=== PATIENT | female | born 1965 | race African-American/Black ===

== ENCOUNTER 2016-12-16 15:20 | Inpatient (IN) | payer OTHER ==
[2016-12-16 17:39] VITALS: BMI 23.0
--- NOTE | 2016-12-16 21:45 | HP ---
Admission ROS [facility] - [facility] Chief Complaint: COMPLETED DETOX FOR OPIATE DEPENDENCE NOW SEEKING REHAB FOR CONTINUATION OF RECOVERY Allergies/Adverse Reactions: Allergies Allergy/AdvReac Type Severity Reaction Status Date / Time No Known Allergies Allergy Verified 12/16/16 19:38 History of Present Illness: 50 Y.O FEMALE WITH LONG HISTORY OF POLYSUBSTANCE DEPENDENCE ADMITTED TO REHAB . CLIENT COMPLETED DETOX AT [facility] AND WAS DC TODAY. TRANSFERRED HERE FROM [facility]. REPORTS LONGEST CLEAN TIME 15 YEARS RELAPSING 2 YEARS AGO. DETOX: 2X REHAB: 2X Exam Limitations: Physical Impairment (R EYE BLINDNESS) - Ebola screening Have you traveled outside of the country in the last 21 days: No Have you had contact with anyone from an Ebola affected area: No Have you been sick,other than usual withdrawal symptoms: No - Review of Systems Constitutional: No Symptoms Reported EENT: reports: Other (R EYE BLINDNESS) Respiratory: reports: Shortness of Breath, Other (RECENTLY DC FROM [facility] 2 WEEKS AGO AFTER BEING TX'ED FOR PNA) Cardiac: reports: No Symptoms Reported GI: reports: No Symptoms Reported : reports: No Symptoms Reported Musculoskeletal: reports: No Symptoms Reported Integumentary: reports: No Symptoms Reported Neuro: reports: No Symptoms reported Endocrine: reports: No Symptoms Reported Hematology: reports: No Symptoms Reported Psychiatric: reports: Anxious Other Systems: Reviewed and Negative Patient History - Patient Medical History Hx Anemia: No Hx Asthma: No Hx Chronic Obstructive Pulmonary Disease (COPD): No Hx Cancer: No Hx Cardiac Disorders: No Hx Congestive Heart Failure: No Hx Hypertension: Yes (LISINOPRIL) Hx Hypercholesterolemia: No Hx Pacemaker: No HX Cerebrovascular Accident: No Hx Seizures: No Hx Dementia: No Hx Diabetes: No Hx Gastrointestinal Disorders: No Hx Liver Disease: No Hx Genitourinary Disorders: No Hx Sexually Transmitted Disorders: No Hx Renal Disease (ESRD): No Hx Thyroid Disease: No Hx Human Immunodeficiency Virus (HIV): Yes Hx Hepatitis C: No Hx Depression: No Hx Suicide Attempt: No Hx Bipolar Disorder: No Hx Schizophrenia: No Other Medical History: R EYE BLINDNESS - Patient Surgical History Past Surgical History: Yes Other Surgical History: R EYE CORNEAL TRANSPLANT Anesthesia Reaction: No - PPD History Previous Implant?: Yes Documented Results: Negative w/o proof Implanted On Prior [facility] Admission?: No PPD to be Administered?: Yes - Reproductive History Patient is a Female of Child Bearing Age (11 -55 yrs old): Yes LMP comment: IRREG/ LAST MENSES 3 YEARS AGO [place] : [place] [facility] [place] - Smoking Cessation Smoking history: Current every day smoker Have you smoked in the past 12 months: Yes Aproximately how many cigarettes per day: 4 Cigars Per Day: 0 Hx Chewing Tobacco Use: No Initiated information on smoking cessation: Yes 'Breaking Loose' booklet given: 12/16/16 - Substance & Tx. History Hx Alcohol Use: No Hx Substance Use: Yes Substance Use Type: Cocaine, Heroin, Opiates (PERCOCETS) Hx Substance Use Treatment: Yes ([facility]) - Substances Abused HEROIN Route: Inhalation Frequency: Daily Amount used: 7 BAGS Age of first use: 17 Date of Last Use: 12/09/16 COCAINE Route: Inhalation Frequency: 1-2 times per week Amount used: $60 Age of first use: 17 Date of Last Use: 12/07/16 Family Disease History - Family Disease History Family History: Denies Admission Physical Exam [facility] - Vital Signs Vital Signs: Vital Signs - 24 hr 12/16/16 17:36 Temperature 97.7 F Pulse Rate 90 Respiratory 18 Rate Blood Pressure 145/101 - Physical General Appearance: Yes: No Apparent Distress, Appropriately Dressed HEENTM: Yes: Normocephalic, Normal Voice, Pharynx Normal, Other (R EYE PUPIL NOT VISUALIZED DUE TO FAILED CORNEA TRANSPLANT) Respiratory: Yes: Chest Non-Tender, Lungs Clear, Normal Breath Sounds, No Respiratory Distress, No Accessory Muscle Use Neck: Yes: No masses,lesions,Nodules, Supple, Trachea in good position Breast: Yes: Breast Exam Deferred Cardiology: Yes: Regular Rhythm, Regular Rate, S1, S2 Abdominal: Yes: Normal Bowel Sounds, Non Tender, Soft Genitourinary: Yes: Within Normal Limits Back: Yes: Normal Inspection Musculoskeletal: Yes: full range of Motion, Gait Steady Extremities: Yes: Normal Capillary Refill, Normal Range of Motion, Non-Tender Neurological: Yes: flying instructor II-XII NML intact, Fully Oriented, Alert, Motor Strength 5/5, Normal Mood/Affect Integumentary: Yes: Normal Color, Dry, Warm Lymphatic: Yes: Within Normal Limits - Diagnostic (1) Uncomplicated opioid dependence Current Visit: Yes Status: Chronic (2) Cocaine dependence, uncomplicated Current Visit: Yes Status: Chronic (3) Nicotine dependence Current Visit: Yes Status: Chronic Qualifiers: Nicotine product type: cigarettes Substance use status: uncomplicated Qualified Code(s): F17.210 - Nicotine dependence, cigarettes, uncomplicated; F17.210 - Nicotine dependence, cigarettes, uncomplicated (4) HIV (human immunodeficiency virus infection) Current Visit: Yes Status: Chronic (5) HTN (hypertension) Current Visit: Yes Status: Chronic Qualifiers: Hypertension type: essential hypertension Qualified Code(s): I10 - Essential (primary) hypertension; I10 - Essential (primary) hypertension; I10 - Essential (primary) hypertension (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 Cleared for Admission [facility] - Detox or Rehab Detox Regimen/Protocol: Not Applicable Claeared for Rehab Admission: Yes [facility] Breath Alcohol Content Breath Alcohol Content: 0 Urine Pregancy Test - Result Urine Test Results: Negative- NO Line Present Urine Drug Screen - Results Drug Screen Negative: No Urine Drug Screen Results: MTD-Methadone Inpatient Rehab Admission - Initial Determination Are CD services needed?: Yes Free of communicable disease: Yes Not in need of hospitalization: Yes - Rehab Admission Criteria Previous failed treatment: Yes Poor recovery environment: Yes Comorbidities: Yes Lacks judgement: Yes Patient is meeting Inpatient Rehab admission criteria:: Yes
[2016-12-16] MEDS ORDERED: MAGNESIUM CITRATE 300 ML BOTTLE PO PRN (21:53)
[2016-12-16] MEDS ORDERED: MAG HYDROX/AL HYDROX/SIMETH 30 ML UNIT-DOSE CUP PO PRN (21:53)
[2016-12-16] MEDS ORDERED: hydrOXYzine PAMOATE 50 MG CAPSULE (FP) PO PRN (21:53)
[2016-12-16] MEDS ORDERED: MAGNESIUM HYDROX 2400MG/30ML ORAL SUSPENSION 30 ML CUP PO PRN (21:53)
[2016-12-16] MEDS ORDERED: LOPERAMIDE HCL 2 MG CAPSULE PO PRN (21:53)
[2016-12-16] MEDS ORDERED: ACETAMINOPHEN 325 MG TABLET (FP) PO PRN (21:53)
[2016-12-16] MEDS ORDERED: P-EPHED 60MG/TRIPROLIDI 2.5MG TABLET PO PRN (21:53)
[2016-12-16] MEDS ORDERED: NICOTINE POLACRILEX 2 MG GUM BC PRN (21:53)
[2016-12-16] MEDS ORDERED: guaiFENesin/D-METHORPHAN HB 10 ML UNIT-DOSE CUPS PO PRN (21:53)
[2016-12-16] MEDS ORDERED: MENTHOL/PHENOL 1 EACH UD MM PRN (21:53)
[2016-12-16] MEDS ORDERED: IBUPROFEN 400 MG TABLET (FP) PO PRN (21:53)
[2016-12-16] MEDS ORDERED: ZOLPIDEM TARTRATE 5 MG TABLET PO ONE (21:56)
[2016-12-17] MEDS: THIAMINE HCL 100 MG TABLET (FP) PO SCH ×2 (00:29→21:07)
[2016-12-17] MEDS: NICOTINE 14 MG/24 HOURS TOPICAL PATCH TD SCH ×2 (00:29→10:00)
[2016-12-17] MEDS ORDERED: ZOLPIDEM TARTRATE 5 MG TABLET PO ONE (00:45)
[2016-12-17] MEDS ORDERED: TUBERCULIN PPD 5 TU/0.1ML VIAL ID ONE (01:04)
[2016-12-17 01:12] LABS: URINE APPEARANCE SLCLOUDY; URINE BILIRUBIN NEGATIVE (NEGATIVE); URINE BLOOD NEGATIVE (NEGATIVE); URINE COLOR LTYELLOW; URINE GLUCOSE (UA) NEGATIVE (NEGATIVE); URINE KETONE NEGATIVE (NEGATIVE); URINE LEUK ESTERASE NEGATIVE (NEGATIVE); URINE NITRITE NEGATIVE (NEGATIVE); URINE PROTEIN NEGATIVE (NEGATIVE); URINE UROBILINOGEN NEGATIVE mg/dL (0.2-1.0)
[2016-12-17] MEDS: ATAZANAVIR SO4 300 MG CAPSULE PO SCH (10:42)
[2016-12-17] MEDS: RITONAVIR 100 MG TABLET PO SCH (10:42)
[2016-12-17] MEDS: EMTRICITABINE 200MG/TENOFOVIR 300MG PO SCH (10:43)
[2016-12-17] MEDS: PRENATAL VITAMINS W/ FOLIC ACID TABLET (FP) PO SCH (10:43)
[2016-12-17 15:43] LABS: MCH 23.1 pg (25.7-33.7); MCHC 31.8 g/dl (32.0-36.0); MEAN CELL VOLUME 72.7 fl (80-96); PLATELET COUNT 215 K/MM3 (134-434); RDW 15.3 % (11.6-15.6); WHITE BLOOD COUNT 5.3 K/mm3 (4.0-10.0)
[2016-12-17 16:07] LABS: ALBUMIN 2.7 g/dl (3.4-5.0); ALK PHOS 91 U/L (45-117); ANION GAP 5 (8-16); BILIRUBIN,TOTAL 0.8 mg/dL (0.2-1.0); CALCIUM 8.3 mg/dL (8.5-10.1); CO2 26 mmol/L (21-32); CREATININE 1.4 mg/dL (0.55-1.02); GLUCOSE,RANDOM 63 mg/dL (74-106); SGOT/AST 50 U/L (15-37); SGPT/ALT 40 U/L (12-78); TOT PROT 7.9 g/dl (6.4-8.2)
--- NOTE | 2016-12-17 20:35 | EKG ---
Test Reason : Blood Pressure : / mmHG Vent. Rate : 087 BPM Atrial Rate : 087 BPM P-R Int : 156 ms QRS Dur : 086 ms QT Int : 396 ms P-R-T Axes : 071 044 053 degrees QTc Int : 476 ms NORMAL SINUS RHYTHM POSSIBLE LEFT ATRIAL ENLARGEMENT EARLY REPOLARIZATION BORDERLINE ECG NO PREVIOUS ECGS AVAILABLE REPEAT EKG IF CLINICALLY INDICATED Confirmed by BINH ARCE MD ([id number]) on 12/17/2016 8:35:04 PM Referred By: Frida Morgan Confirmed By:BINH ARCE MD
[2016-12-17] MEDS: diphenhydrAMINE HCL 50 MG CAPSULE PO PRN (21:07)
[2016-12-18] MEDS ORDERED: PT OWN MED DRAWER 7, Y5N ONE (08:41)
[2016-12-18] MEDS: ATAZANAVIR SO4 300 MG CAPSULE PO SCH (10:11)
[2016-12-18] MEDS: PRENATAL VITAMINS W/ FOLIC ACID TABLET (FP) PO SCH (10:11)
[2016-12-18] MEDS: EMTRICITABINE 200MG/TENOFOVIR 300MG PO SCH (10:11)
[2016-12-18] MEDS: RITONAVIR 100 MG TABLET PO SCH (10:11)
[2016-12-18] MEDS: NICOTINE 14 MG/24 HOURS TOPICAL PATCH TD SCH (10:12)
--- NOTE | 2016-12-18 12:51 | HP ---
Psychiatrist Admission - Data Date of interview: 12/18/16 Admission source: [facility] Identifying data: This is the first admission to [facility] inpatient rehabilitation for this 50 years old single AA female resides with boyfriend supported by [place]. Medical History: HIV + dx in 1994,R eye blindness. Psychiatric History: denies Physical/Sexual Abuse/Trauma History: denies Vital Signs: Vital Signs - 24 hr 12/18/16 12/18/16 12/18/16 00:30 03:30 07:10 Temperature 98.1 F Pulse Rate 74 Respiratory 16 16 18 Rate Blood Pressure 120/78 12/18/16 09:39 Temperature Pulse Rate 90 Respiratory Rate Blood Pressure 126/86 Allergies/Adverse Reactions: Allergies Allergy/AdvReac Type Severity Reaction Status Date / Time No Known Allergies Allergy Verified 12/16/16 19:38 Date of last physical exam: 12/16/16 Concur with the findings of this exam: Yes - Substance Abuse/Tx History Hx Alcohol Use: No Hx Substance Use: Yes (cocaine since 17 yo,heroin since her teens,stopped for 13 years,then relaps) Substance Use Type: Cocaine, Heroin Hx Substance Use Treatment: Yes (this her first inpatient rehabilitation treatment) Mental Status Exam - Mental Status Exam Alert and Oriented to: Time, Place, Person Cognitive Function: Grossly Intact Patient Appearance: Well Groomed Mood: Euthymic Affect: Mood Congruent Patient Behavior: Cooperative Speech Pattern: Clear Voice Loudness: Normal Thought Process: Goal Oriented Thought Disorder: Not Present Hallucinations: Denies Suicidal Ideation: Denies Homicidal Ideation: Denies Insight/Judgement: Fair Sleep: Fair Appetite: Good Muscle strength/Tone: Normal Gait/Station: Normal Psychiatric Findings - Problem List ([place] 1, 2,3) (1) Blind right eye Current Visit: Yes Status: Chronic (2) Cocaine dependence, uncomplicated Current Visit: Yes Status: Chronic (3) HIV (human immunodeficiency virus infection) Current Visit: Yes Status: Chronic (4) HTN (hypertension) Current Visit: Yes Status: Chronic Qualifiers: Hypertension type: essential hypertension Qualified Code(s): I10 - Essential (primary) hypertension; I10 - Essential (primary) hypertension; I10 - Essential (primary) hypertension (5) Nicotine dependence Current Visit: Yes Status: Chronic Qualifiers: Nicotine product type: cigarettes Substance use status: uncomplicated Qualified Code(s): F17.210 - Nicotine dependence, cigarettes, uncomplicated; F17.210 - Nicotine dependence, cigarettes, uncomplicated (6) Opioid dependence Current Visit: Yes Status: Chronic - Initial Treatment Plan Initial Treatment Plan: Will monitor progress.
[2016-12-18] MEDS: THIAMINE HCL 100 MG TABLET (FP) PO SCH (21:07)
[2016-12-18] MEDS: diphenhydrAMINE HCL 50 MG CAPSULE PO PRN (21:07)
[2016-12-19 07:09] VITALS: BP 134/91; PULSE 80; TEMP 97.6
[2016-12-19] MEDS ORDERED: PT OWN MED DRAWER 7, Y5N ONE (08:05)
--- NOTE | 2016-12-19 09:46 | PN ---
S Progress Note Note: Patient decided to sign out AMA despite strong recommendations to continue treatment.See staff notes for details.
== END 2016-12-19 09:31 | disposition left against medical advice (07) | DRG 770 ==
LOC: YASAS 15:20 → Y3N 22:32 → UNDOADMIN 22:32 → Y3E 22:54
PROVIDERS: ADMIT Psychiatry & Neurology Psychiatry; ATTEND Internal Medicine
PROC: HZ43ZZZ Group Counseling for Substance Abuse Treatment, 12-Step (ICD-10-PCS; principal; 2016-12-16)
DX: F11.20 Opioid dependence, uncomplicated (principal); F14.20 Cocaine dependence, uncomplicated; F17.210 Nicotine dependence, cigarettes, uncomplicated; H54.40 Blindness, one eye, unspecified eye; Z21 Asymptomatic human immunodeficiency virus [HIV] infection status; I10 Essential (primary) hypertension
CPT/HCPCS: 36415; 80053; 81003; 85027; 86593; 86803; 93005; 93010

== ENCOUNTER 2020-07-25 00:27 | Inpatient (IN) | payer OTHER ==
[2020-07-25 00:39] VITALS: BMI 20.6
[2020-07-25] MEDS ORDERED: clonazePAM 0.5 MG TABLET PO ONE (00:51)
[2020-07-25] MEDS ORDERED: clonazePAM 0.5 MG TABLET ONE (00:59)
[2020-07-25] MEDS ORDERED: MELATONIN 5 MG TABLETS PO ONE (01:04)
[2020-07-25 01:05] LABS: BASO % 1.5 % (0-2.0); EOS % 5.8 % (0-4.5); HEMATOCRIT 35.8 % (32.4-45.2); HEMOGLOBIN 11.1 GM/dL (10.7-15.3); LYMPH % 21.5 % (8-40); MCH 25.9 pg (25.7-33.7); MCHC 31.1 g/dl (32.0-36.0); MEAN CELL VOLUME 83.3 fl (80-96); MEAN PLT VOLUME 7.1 fl (7.5-11.1); NEUT % 55.2 % (42.8-82.8); PLATELET COUNT 160 K/MM3 (134-434); RDW 17.7 % (11.6-15.6); WHITE BLOOD COUNT 4.8 K/mm3 (4.0-10.0)
[2020-07-25 01:17] LABS: CHLORIDE 105 mmol/L (98-107); SODIUM 143 mmol/L (136-145)
[2020-07-25 01:20] LABS: ALBUMIN 2.5 g/dl (3.4-5.0); ANION GAP 12 MMOL/L (8-16); BLOOD UREA NITROGEN 36.6 mg/dL (7-18); CO2 26 mmol/L (21-32); GLUCOSE,RANDOM 106 mg/dL (74-106)
[2020-07-25 01:23] LABS: SGOT/AST 25 U/L (15-37); SGPT/ALT 17 U/L (13-61)
[2020-07-25 01:25] LABS: BILIRUBIN,TOTAL 0.6 mg/dL (0.2-1); TOT PROT 7.9 g/dl (6.4-8.2)
[2020-07-25 01:26] LABS: ALK PHOS 122 U/L (45-117)
[2020-07-25 02:01] LABS: CALCIUM 6.7 mg/dL (8.5-10.1); CREATININE 10.2 mg/dL (0.55-1.3)
[2020-07-25] MEDS ORDERED: MELATONIN 5 MG TABLETS ONE (02:01)
[2020-07-25] MEDS ORDERED: METHADONE HCL 10 MG TABLET (FOR DETOX USE ONLY) PO ONE (06:04)
[2020-07-25] MEDS ORDERED: METHADONE HCL 10 MG TABLET ONE (06:37)
[2020-07-25] MEDS ORDERED: HEPARIN NA (PORCINE) 5,000 UNITS/ML 1ML VIAL ONE (06:39)
[2020-07-25] MEDS: HEPARIN NA (PORCINE) 5,000 UNITS/ML 1ML VIAL SQ SCH ×3 (06:52→21:53)
[2020-07-25] MEDS ORDERED: SODIUM CHLORIDE 250 ML IV PRN (07:26)
[2020-07-25 08:10] LABS: HEMATOCRIT 39.2 % (32.4-45.2); HEMOGLOBIN 12.2 GM/dL (10.7-15.3); MEAN CELL VOLUME 83.9 fl (80-96); MEAN PLT VOLUME 7.3 fl (7.5-11.1); PLATELET COUNT 154 K/MM3 (134-434); RBC 4.67 M/mm3 (3.60-5.2); RDW 17.6 % (11.6-15.6)
[2020-07-25 08:33] LABS: CHLORIDE 104 mmol/L (98-107); SODIUM 143 mmol/L (136-145)
[2020-07-25 08:35] LABS: ALBUMIN 2.5 g/dl (3.4-5.0); ANION GAP 11 MMOL/L (8-16); BLOOD UREA NITROGEN 38.6 mg/dL (7-18); CO2 27 mmol/L (21-32); GLUCOSE,RANDOM 65 mg/dL (74-106); MAGNESIUM 2.6 mg/dL (1.8-2.4)
[2020-07-25 08:38] LABS: SGOT/AST 23 U/L (15-37); SGPT/ALT 15 U/L (13-61)
[2020-07-25 08:40] LABS: BILIRUBIN,TOTAL 0.6 mg/dL (0.2-1); TOT PROT 7.8 g/dl (6.4-8.2)
[2020-07-25 08:41] LABS: ALK PHOS 116 U/L (45-117)
[2020-07-25 08:49] LABS: CALCIUM 6.9 mg/dL (8.5-10.1); CREATININE 10.3 mg/dL (0.55-1.3); PHOSPHOROUS 8.5 mg/dL (2.5-4.9)
[2020-07-25 09:03] LABS: INR 1.15 (0.83-1.09); PROTHROMBIN TIME (PATIENT) 13.9 SEC (9.7-13.0)
[2020-07-25 09:05] LABS: ACTIVATED PTT 34.5 SECONDS (25.2-36.5)
[2020-07-25] MEDS ORDERED: metoPROLOL SUCCINATE 25 MG TAB.SR.24H (FP) PO SCH (10:00)
[2020-07-25] MEDS ORDERED: metoPROLOL SUCCINATE 25 MG TAB.SR.24H (FP) ONE (10:58)
[2020-07-25] MEDS ORDERED: hydrALAZINE HCL 25 MG TABLET (FP) ONE (15:07)
[2020-07-25] MEDS: hydrALAZINE HCL 25 MG TABLET (FP) PO SCH ×2 (15:10→21:53)
[2020-07-25] MEDS: SEVELAMER CARBONATE 800 MG TAB (FP) PO SCH (17:46)
[2020-07-25] MEDS: cloNIDine HCL 0.1 MG TABLET PO PRN (20:02)
[2020-07-25] MEDS: CARVEDILOL 6.25 MG TABLET (FP) PO SCH (21:53)
[2020-07-26] MEDS: cloNIDine HCL 0.1 MG TABLET PO PRN ×2 (01:35→05:36)
[2020-07-26] MEDS ORDERED: LORazepam 0.5 MG TABLET PO ONE (02:31)
[2020-07-26] MEDS: MELATONIN 5 MG TABLETS PO ONE ×2 (04:35→05:16)
[2020-07-26] MEDS: hydrALAZINE HCL 25 MG TABLET (FP) PO SCH ×3 (05:35→21:54)
[2020-07-26] MEDS: HEPARIN NA (PORCINE) 5,000 UNITS/ML 1ML VIAL SQ SCH ×3 (05:36→21:55)
[2020-07-26] MEDS ORDERED: METHADONE HCL 10 MG TABLET ONE (08:25)
[2020-07-26] MEDS ORDERED: METHADONE HCL 5 MG TABLET ONE (08:25)
[2020-07-26] MEDS: SEVELAMER CARBONATE 800 MG TAB (FP) PO SCH ×3 (08:40→18:18)
[2020-07-26] MEDS: ISOSORBIDE DINITRATE 20 MG TABLET PO SCH ×2 (08:40→13:02)
[2020-07-26 08:58] LABS: BASO % 1.3 % (0-2.0); EOS % 7.6 % (0-4.5); HEMATOCRIT 37.3 % (32.4-45.2); LYMPH % 24.4 % (8-40); MCH 26.5 pg (25.7-33.7); MCHC 32.2 g/dl (32.0-36.0); MEAN CELL VOLUME 82.2 fl (80-96); MEAN PLT VOLUME 7.1 fl (7.5-11.1); MONO % 14.5 % (3.8-10.2); NEUT % 52.2 % (42.8-82.8); PLATELET COUNT 155 K/MM3 (134-434); RBC 4.53 M/mm3 (3.60-5.2); WHITE BLOOD COUNT 5.4 K/mm3 (4.0-10.0)
[2020-07-26 09:55] LABS: CREATININE 6.3 mg/dL (0.55-1.3)
[2020-07-26 09:57] LABS: BILIRUBIN,TOTAL 0.6 mg/dL (0.2-1)
[2020-07-26] MEDS ORDERED: NICOTINE 7 MG/24 HOURS TOPICAL PATCH TD SCH (10:00)
[2020-07-26] MEDS ORDERED: METHADONE 20 MG, METHADONE 5 MG PO ONE (10:00)
[2020-07-26 10:07] LABS: BLOOD UREA NITROGEN 21.3 mg/dL (7-18)
[2020-07-26 10:12] LABS: ALBUMIN 2.5 g/dl (3.4-5.0)
[2020-07-26 10:13] LABS: MAGNESIUM 2.3 mg/dL (1.8-2.4)
[2020-07-26] MEDS ORDERED: PT OWN MED DRAWER 7, Y5N ONE ×2 (11:38→12:27)
[2020-07-26] MEDS: CARVEDILOL 6.25 MG TABLET (FP) PO SCH ×2 (11:39→21:54)
[2020-07-26] MEDS ORDERED: LORazepam 0.5 MG TABLET PO PRN (12:25)
[2020-07-26] MEDS ORDERED: LIDOCAINE 5% TOPICAL PATCH TP ONE (19:54)
[2020-07-26] MEDS: MELATONIN 5 MG TABLETS PO SCH (21:54)
[2020-07-27] MEDS: hydrALAZINE HCL 25 MG TABLET (FP) PO SCH ×2 (05:08→14:13)
[2020-07-27] MEDS: HEPARIN NA (PORCINE) 5,000 UNITS/ML 1ML VIAL SQ SCH ×3 (05:09→21:32)
[2020-07-27] MEDS ORDERED: METHADONE HCL 10 MG TABLET PO ONE (06:00)
[2020-07-27] MEDS ORDERED: SODIUM CHLORIDE 250 ML IV PRN ×2 (07:17→07:57)
[2020-07-27] MEDS ORDERED: cloNIDine HCL 0.1 MG TABLET PO PRN (07:57)
[2020-07-27] MEDS ORDERED: LIDOCAINE PATCH REMOVAL MC SCH (08:00)
[2020-07-27] MEDS: SEVELAMER CARBONATE 800 MG TAB (FP) PO SCH ×3 (08:20→17:12)
[2020-07-27] MEDS ORDERED: PT OWN MED DRAWER 7, Y5N ONE (09:01)
[2020-07-27] MEDS: NICOTINE 7 MG/24 HOURS TOPICAL PATCH TD SCH (09:34)
[2020-07-27] MEDS ORDERED: ACETAMINOPHEN 325 MG TABLET (FP) PO PRN (09:49)
[2020-07-27 09:56] LABS: CHLORIDE 103 mmol/L (98-107); SODIUM 137 mmol/L (136-145)
[2020-07-27 10:06] LABS: ALBUMIN 2.6 g/dl (3.4-5.0); ANION GAP 11 MMOL/L (8-16); BLOOD UREA NITROGEN 31.4 mg/dL (7-18); CALCIUM 6.8 mg/dL (8.5-10.1); CO2 23 mmol/L (21-32); GLUCOSE,RANDOM 107 mg/dL (74-106); MAGNESIUM 2.5 mg/dL (1.8-2.4)
[2020-07-27 10:08] LABS: CREATININE 7.6 mg/dL (0.55-1.3); SGOT/AST 23 U/L (15-37); SGPT/ALT 16 U/L (13-61)
[2020-07-27 10:09] LABS: PHOSPHOROUS 4.7 mg/dL (2.5-4.9)
[2020-07-27 10:10] LABS: BILIRUBIN,TOTAL 0.6 mg/dL (0.2-1)
[2020-07-27 10:12] LABS: ALK PHOS 113 U/L (45-117)
[2020-07-27 11:15] LABS: BASO % 1.2 % (0-2.0); HEMATOCRIT 37.1 % (32.4-45.2); HEMOGLOBIN 11.6 GM/dL (10.7-15.3); LYMPH % 32.8 % (8-40); MCH 25.8 pg (25.7-33.7); MCHC 31.2 g/dl (32.0-36.0); MEAN CELL VOLUME 82.8 fl (80-96); MEAN PLT VOLUME 7.8 fl (7.5-11.1); MONO % 12.8 % (3.8-10.2); NEUT % 46.2 % (42.8-82.8); PLATELET COUNT 183 K/MM3 (134-434); RBC 4.47 M/mm3 (3.60-5.2); RDW 17.8 % (11.6-15.6); WHITE BLOOD COUNT 5.1 K/mm3 (4.0-10.0)
[2020-07-27] MEDS: CARVEDILOL 6.25 MG TABLET (FP) PO SCH ×2 (11:29→21:33)
[2020-07-27] MEDS: ISOSORBIDE DINITRATE 20 MG TABLET PO SCH ×2 (11:30→14:15)
[2020-07-27 12:51] LABS: ANISOCYTOSIS 1+; MACROCYTOSIS 0; PLATELET ESTIMATE NORMAL
[2020-07-27 16:13] LABS: HEP B CORE AB, TOT Positive (Negative)
[2020-07-27] MEDS ORDERED: LIDOCAINE 5% TOPICAL PATCH TP ONE (21:08)
[2020-07-27] MEDS: MELATONIN 5 MG TABLETS PO SCH (21:31)
[2020-07-27 23:40] VITALS: PULSE 89; TEMP 98.2
[2020-07-28] MEDS ORDERED: METHADONE HCL 5 MG TABLET ONE (05:55)
[2020-07-28] MEDS ORDERED: METHADONE HCL 10 MG TABLET ONE (05:56)
[2020-07-28] MEDS ORDERED: METHADONE 10 MG, METHADONE 5 MG PO ONE ×2 (06:00)
[2020-07-28] MEDS: HEPARIN NA (PORCINE) 5,000 UNITS/ML 1ML VIAL SQ SCH (06:16)
[2020-07-28] MEDS: hydrALAZINE HCL 25 MG TABLET (FP) PO SCH (06:22)
[2020-07-28 06:24] VITALS: BP 112/64
[2020-07-28] MEDS ORDERED: PT OWN MED DRAWER 7, Y5N ONE (08:55)
[2020-07-28] MEDS ORDERED: LIDOCAINE PATCH REMOVAL MC SCH (09:00)
[2020-07-28] MEDS: CARVEDILOL 6.25 MG TABLET (FP) PO SCH (09:33)
[2020-07-28] MEDS: SEVELAMER CARBONATE 800 MG TAB (FP) PO SCH (09:33)
[2020-07-28] MEDS: NICOTINE 7 MG/24 HOURS TOPICAL PATCH TD SCH (09:33)
[2020-07-28] MEDS: ISOSORBIDE DINITRATE 20 MG TABLET PO SCH (09:34)
[2020-07-29] MEDS ORDERED: METHADONE HCL 10 MG TABLET PO ONE ×2 (06:00)
[2020-07-30] MEDS ORDERED: METHADONE HCL 5 MG TABLET PO ONE ×2 (06:00)
== END 2020-07-28 12:50 | disposition left against medical advice (07) | DRG 194 ==
LOC: JER 00:27 → JERBED 03:57 → J5S 19:42 → J4W 07-26 14:19
PROVIDERS: ADMIT Internal Medicine; ATTEND Nurse Practitioner Family
PROC: 5A1D70Z Performance of Urinary Filtration, Intermittent, Less than 6 Hours Per Day (ICD-10-PCS; principal; 2020-07-25)
DX: I13.2 Hypertensive heart and chronic kidney disease with heart failure and with stage 5 chronic kidney disease, or end stage renal disease (principal); N18.6 End stage renal disease; F11.23 Opioid dependence with withdrawal; I50.22 Chronic systolic (congestive) heart failure; E88.09 Other disorders of plasma-protein metabolism, not elsewhere classified; E83.51 Hypocalcemia; E83.39 Other disorders of phosphorus metabolism; R94.31 Abnormal electrocardiogram [ECG] [EKG]; Z99.2 Dependence on renal dialysis; H54.40 Blindness, one eye, unspecified eye; Z21 Asymptomatic human immunodeficiency virus [HIV] infection status
CPT/HCPCS: 36415; 71045-TC-FY; 80053; 82140; 82550; 82553; 82962; 83735; 84100; 84443; 84484; 85025; 85027; 85610; 85730; 86359; 86360; 86704; 86706; 86707; 86708; 86709; 86803; 87340; 87536; 93005; 93010; 93306-TC; 93970-TC; 97116-GP; 97161-GP; 99285-25; C9803; J0735; J1644; U0003; U0005